=== PATIENT | female | born 1965 | race Asian ===

== ENCOUNTER 2022-03-05 14:47 | Emergency (ER) | payer OTHER ==
[2022-03-05 15:10] VITALS: BP 137/81; PULSE 77; RESP 18; TEMP 98.1; BMI 38.9
== END 2022-03-05 16:23 | disposition home or self-care (01) ==
LOC: JERFT 14:47
DX: L91.8 Other hypertrophic disorders of the skin (principal); M25.561 Pain in right knee
CPT/HCPCS: 99281-25

== ENCOUNTER 2022-09-07 04:00 | Day surgery (SDC) | payer OTHER ==
[2022-08-04 16:54] VITALS: BMI 39.9
[2022-09-07] MEDS ORDERED: DEXAMETHASONE SOD PHOSPHATE 4 MG/1 ML VIAL ONE (08:22)
[2022-09-07] MEDS ORDERED: ONDANSETRON 4 MG/2 ML VIAL ONE (08:22)
[2022-09-07] MEDS ORDERED: MIDAZOLAM HCL 2 MG/2 ML SINGLE DOSE VIAL ONE (08:22)
[2022-09-07] MEDS ORDERED: LIDOCAINE HCL/PF 2% SDV 5ML VIAL ONE (08:22)
[2022-09-07] MEDS ORDERED: SUCCINYLCHOLINE CHLORIDE 200 MG/10 ML SYRINGE ONE (08:22)
[2022-09-07] MEDS ORDERED: IBUPROFEN 800 MG/8 ML IJ IVPB PRN (09:08)
[2022-09-07] MEDS ORDERED: IBUPROFEN 600 MG TABLET (FP) PO PRN (09:08)
[2022-09-07] MEDS ORDERED: oxyCODONE HCL 5 MG TABLET PO PRN ×2 (09:08→10:23)
[2022-09-07] MEDS ORDERED: ONDANSETRON 4 MG/2 ML VIAL IVPUSH PRN ×2 (09:08→10:23)
[2022-09-07] MEDS ORDERED: ELECTROLYTE-148 SOLN 1,000 ML IV SCH (09:15)
[2022-09-07] MEDS ORDERED: GLYCOPYRROLATE 0.2 MG/1 ML VIAL ONE (09:32)
[2022-09-07] MEDS ORDERED: SEVOFLURANE 250 ML BTL ONE (09:58)
[2022-09-07] MEDS ORDERED: LACTATED RINGERS SOLUTION 1,000 ML IV SCH (10:30)
[2022-09-07 11:51] VITALS: RESP 20
[2022-09-07 16:06] VITALS: BP 115/68; PULSE 85; TEMP 97.5
== END 2022-09-07 12:55 | disposition home or self-care (01) ==
LOC: JASU-SURG 04:00
PROVIDERS: ATTEND Obstetrics & Gynecology
PROC: 0UB98ZZ Excision of Uterus, Via Natural or Artificial Opening Endoscopic (ICD-10-PCS; principal; 2022-09-07 08:30)
DX: N84.0 Polyp of corpus uteri (principal); Z78.0 Asymptomatic menopausal state
CPT/HCPCS: 88305-TC; 94760